=== PATIENT | male | born 1990 | race American Indian/Alaskan Native ===

== ENCOUNTER 2021-02-20 18:57 | Emergency (ER) | payer SELFPAY ==
--- NOTE | 2021-02-20 20:50 | XRay Report ---
CHEST 2 VIEWS INDICATION / CLINICAL INFORMATION: chest pain. COMPARISON: None available. FINDINGS: SUPPORT DEVICES: None. HEART / MEDIASTINUM: No significant abnormality. LUNGS / PLEURA: No significant pulmonary abnormality. No significant pleural effusion. No pneumothora x. ADDITIONAL FINDINGS: No significant additional findings. IMPRESSION: 1. No acute abnormality of the chest. Signer Name: Harvey Arboleda MD Signed: 02/20/2021 8:46 PM Workstation Name: [id number]
[2021-02-20] MEDS ORDERED: KETOROLAC 10 MG TAB PO ONE (23:24)
[2021-02-20] MEDS ORDERED: predniSONE 20 MG TAB PO ONE (23:25)
--- NOTE | 2021-02-20 23:25 | Emergency Department Report ---
ED Chest Pain HPI - General Chief Complaint: Chest Pain Stated Complaint: CHEST PAIN, BACK SOB Time Seen by Provider: 02/20/21 21:09 Source: patient Mode of arrival: Ambulatory Limitations: No Limitations - History of Present Illness Initial Comments: 30-year-old -[place] male patient presents with complaints of bilateral chest pain and tightness x3 weeks. He states the pain is constant and rates it as a 7/10 in severity. He denies any past medical history, recent long travel, cough, hemoptysis, fever/chills/sweats, recent known sick contacts, or loss of taste or smell. No shortness of breath per patient. He also denies any leg pain/swelling or history of DVT/PE. Patient is active smoker. He has not received the COVID-19 vaccination. He admits to frequent heavy lifting. Tylenol and ibuprofen temporarily help with the pain. He denies any personal history of heart disease, however admits to heart disease in his mother Severity scale (0 -10): 8 - Related Data Previous Rx's Medication Instructions Recorded Last Taken Type Naproxen 500 mg PO BID PRN #30 tablet 02/21/21 Unknown Rx methocarbamoL [Methocarbamol] 750 mg PO TID PRN #30 tablet 02/21/21 Unknown Rx Allergies Allergy/AdvReac Type Severity Reaction Status Date / Time No Known Allergies Allergy Verified 02/21/21 00:21 Heart Score - HEART Score History: Slightly suspicious EKG: Non-specific Age: < 45 Risk factors: 1-2 risk factors Troponin: < normal limit HEART Score: 2 - EKG Read Time Time EKG Completed: 16:00 EKG Read Time: 16:05 - Critical Actions Critical Actions: 0-3 pts:0.9-1.7%risk of adverse cardiac event.Candidate for discharge ED Review of Systems ROS: Stated complaint: CHEST PAIN, BACK SOB Other details as noted in HPI Constitutional: denies: chills, fever, malaise Respiratory: denies: cough, shortness of breath Cardiovascular: chest pain. denies: palpitations Gastrointestinal: denies: abdominal pain, nausea, vomiting Musculoskeletal: denies: joint swelling, arthralgia Skin: denies: rash, change in color ED Past Medical Hx - Past Medical History Previous Medical History?: No - Surgical History Past Surgical History?: No - Medications Home Medications: Home Medications Medication Instructions Recorded Confirmed Last Taken Type Naproxen 500 mg PO BID PRN #30 tablet 02/21/21 Unknown Rx methocarbamoL [Methocarbamol] 750 mg PO TID PRN #30 tablet 02/21/21 Unknown Rx ED Physical Exam - General Limitations: No Limitations General appearance: alert, in no apparent distress - Head Head exam: Present: atraumatic, normocephalic - Eye Eye exam: Present: normal appearance. Absent: scleral icterus - Neck Neck exam: Present: normal inspection - Respiratory Respiratory exam: Present: normal lung sounds bilaterally, chest wall tenderness (Tenderness to palpation noted bilaterally to the parasternal area of the chest wall without obvious deformity or skin changes noted). Absent: respiratory distress, wheezes, rales, rhonchi, stridor - Cardiovascular Cardiovascular Exam: Present: regular rate, normal rhythm, normal heart sounds. Absent: systolic murmur, diastolic murmur - GI/Abdominal GI/Abdominal exam: Present: soft. Absent: tenderness - Neurological Exam Neurological exam: Present: alert, oriented X3 - Psychiatric Psychiatric exam: Present: normal affect, normal mood - Skin Skin exam: Present: warm, dry, intact, normal color. Absent: rash ED Course Vital Signs 02/20/21 02/20/21 02/21/21 20:16 20:21 01:17 Temperature 98.5 F 98.0 F 97.9 F Pulse Rate 80 65 63 Respiratory 17 18 18 Rate Blood Pressure 120/78 125/72 Blood Pressure 131/72 [Right] O2 Sat by Pulse 96 99 98 Oximetry ED Medical Decision Making - Lab Data Result diagrams: 02/20/21 23:20 02/20/21 23:20 Lab Results 02/20/21 02/20/21 02/20/21 Range/Units 23:20 23:20 23:25 WBC 5.1 (4.5-11.0) K/mm3 RBC 4.65 (3.65-5.03) M/mm3 Hgb 14.6 (11.8-15.2) gm/dl Hct 43.2 (35.5-45.6) % MCV 93 (84-94) fl MCH 31 (28-32) pg MCHC 34 (32-34) % RDW 13.7 (13.2-15.2) % Plt Count 252 (140-440) K/mm3 Lymph % (Auto) 41.4 H (13.4-35.0) % [place] % (Auto) 14.4 H (0.0-7.3) % Eos % (Auto) 1.2 (0.0-4.3) % Baso % (Auto) 0.3 (0.0-1.8) % Lymph # (Auto) 2.1 (1.2-5.4) K/mm3 [place] # (Auto) 0.7 (0.0-0.8) K/mm3 Eos # (Auto) 0.1 (0.0-0.4) K/mm3 Baso # (Auto) 0.0 (0.0-0.1) K/mm3 Seg Neutrophils % 42.7 (40.0-70.0) % Seg Neutrophils # 2.2 (1.8-7.7) K/mm3 ESR (0-20) mm/Hr Sodium 136 L (137-145) mmol/L Potassium 4.2 (3.6-5.0) mmol/L Chloride 101.7 (98-107) mmol/L Carbon Dioxide 24 (22-30) mmol/L Anion Gap 15 mmol/L BUN 16 (9-20) mg/dL Creatinine 0.8 (0.8-1.3) mg/dL Estimated GFR > 60 ml/min BUN/Creatinine Ratio 20 % Glucose 84 (75-100) mg/dL Calcium 9.2 (8.4-10.2) mg/dL Total Bilirubin 0.20 (0.1-1.2) mg/dL AST 21 (5-40) units/L ALT 17 (7-56) units/L Alkaline Phosphatase 99 (35-129) units/L Troponin T < 0.010 (0.00-0.029) ng/mL C-Reactive Protein 0.20 (0.00-1.30) mg/dL Total Protein 6.8 (6.3-8.2) g/dL Albumin 3.9 (3.9-5) g/dL Albumin/Globulin Ratio 1.3 % 02/21/21 Range/Units Unknown WBC (4.5-11.0) K/mm3 RBC (3.65-5.03) M/mm3 Hgb (11.8-15.2) gm/dl Hct (35.5-45.6) % MCV (84-94) fl MCH (28-32) pg MCHC (32-34) % RDW (13.2-15.2) % Plt Count (140-440) K/mm3 Lymph % (Auto) (13.4-35.0) % [place] % (Auto) (0.0-7.3) % Eos % (Auto) (0.0-4.3) % Baso % (Auto) (0.0-1.8) % Lymph # (Auto) (1.2-5.4) K/mm3 [place] # (Auto) (0.0-0.8) K/mm3 Eos # (Auto) (0.0-0.4) K/mm3 Baso # (Auto) (0.0-0.1) K/mm3 Seg Neutrophils % (40.0-70.0) % Seg Neutrophils # (1.8-7.7) K/mm3 ESR 1 (0-20) mm/Hr Sodium (137-145) mmol/L Potassium (3.6-5.0) mmol/L Chloride (98-107) mmol/L Carbon Dioxide (22-30) mmol/L Anion Gap mmol/L BUN (9-20) mg/dL Creatinine (0.8-1.3) mg/dL Estimated GFR ml/min BUN/Creatinine Ratio % Glucose (75-100) mg/dL Calcium (8.4-10.2) mg/dL Total Bilirubin (0.1-1.2) mg/dL AST (5-40) units/L ALT (7-56) units/L Alkaline Phosphatase (35-129) units/L Troponin T (0.00-0.029) ng/mL C-Reactive Protein (0.00-1.30) mg/dL Total Protein (6.3-8.2) g/dL Albumin (3.9-5) g/dL Albumin/Globulin Ratio % - EKG Data EKG shows normal: sinus rhythm Rate: normal - EKG Data When compared to previous EKG there are: other (Elevated T waves and possible pericarditis) - Radiology Data Radiology results: report reviewed CHEST 2 VIEWS INDICATION / CLINICAL INFORMATION: chest pain. COMPARISON: None available. FINDINGS: SUPPORT DEVICES: None. HEART / MEDIASTINUM: No significant abnormality. LUNGS / PLEURA: No significant pulmonary abnormality. No significant pleural effusion. No pneumothorax. ADDITIONAL FINDINGS: No significant additional findings. IMPRESSION: 1. No acute abnormality of the chest. - Medical Decision Making 30-year-old -[place] male patient presents with complaints of bilateral chest pain and tightness x3 weeks. He states the pain is constant and rates it as a 7/10 in severity. He denies any past medical history, recent long travel, cough, hemoptysis, fever/chills/sweats, recent known sick contacts, or loss of taste or smell. No shortness of breath per patient. He also denies any leg pain/swelling or history of DVT/PE. Patient is active smoker. He has not received the COVID-19 vaccination. He admits to frequent heavy lifting. Tylenol and ibuprofen temporarily help with the pain. He denies any personal history of heart disease, however admits to heart disease in his mother Tenderness to palpation noted bilaterally to parasternal region of chest. PERC score = 0. Heart score = 2. Chest x-ray is normal. EKG shows possible diffuse elevated T waves and possible pericarditis. Heart exam is normal. Vitals are normal. CBC and troponin normal. CRP is normal. Do not suspect pericarditis. Symptoms likely due to costochondritis. Patient states pain improved with meds given here in ED. Recommend follow-up with PCP and cardiology. Discussed in detail signs and symptoms that should prompt immediate return to the ED with patient who verbalizes understanding. Critical care attestation.: If time is entered above; I have spent that time in minutes in the direct care of this critically ill patient, excluding procedure time. ED Disposition Clinical Impression: Other chest pain Disposition: 01 HOME / SELF CARE / HOMELESS Is pt being admited?: No Condition: Stable Instructions: Nonspecific Chest Pain, Adult, [id number], Costochondritis Prescriptions: methocarbamoL [Methocarbamol] 750 mg PO TID PRN #30 tablet PRN Reason: muscle spasm/tightness Naproxen 500 mg PO BID PRN #30 tablet PRN Reason: pain Referrals: MICHELLE COTO MD [Staff Physician] - 3-5 Days
[2021-02-21 00:15] LABS: Alanine Aminotransferase 17 units/L (7-56); Albumin 3.9 g/dL (3.9-5); BUN/Creatinine Ratio 20; Blood Urea Nitrogen 16 mg/dL (9-20); Calcium 9.2 mg/dL (8.4-10.2); Hemolysis Index 7
[2021-02-21 00:18] LABS: Basophils % (Auto) 0.3 % (0.0-1.8); Eosinophils # (Auto) 0.1 K/mm3 (0.0-0.4); Eosinophils % (Auto) 1.2 % (0.0-4.3); Hematocrit 43.2 % (35.5-45.6); Hemoglobin 14.6 gm/dl (11.8-15.2); Lymphocytes # (Auto) 2.1 K/mm3 (1.2-5.4); Lymphocytes % (Auto) 41.4 % (13.4-35.0); Mean Corpuscular HGB Conc 34 % (32-34); Mean Corpuscular Volume 93 fl (84-94); Monocytes # (Auto) 0.7 K/mm3 (0.0-0.8); Monocytes % (Auto) 14.4 % (0.0-7.3); Platelet Count 252 K/mm3 (140-440); Red Blood Count 4.65 M/mm3 (3.65-5.03); Red Cell Distribution Width 13.7 % (13.2-15.2)
[2021-02-21 01:18] VITALS: BP 125/72
--- NOTE | 2021-02-21 11:24 | Electrocardiograph Report ---
[facility] Test Date: 2021-02-20 Test Time: 19:21:04 Pat Name: RADU DAIGLE Department: Room: Gender: M Artisan Plasterer: : 1990 Requested By: MICHELLE BAGLEY Order Number: [id number] Reading MD: Dallas Clifton Measurements Intervals [place] Rate: 85 P: 64 CO: 156 QRS: 10 QRSD: 100 T: 45 QT: 356 QTc: 424 Interpretive Statements Sinus rhythm Nonspecific ST elevation No previous ECG available for comparison Electronically Signed On 02-21-2021 11:24:12 EST by Dallas Clifton
== END 2021-02-21 01:39 | disposition home or self-care (01) ==
LOC: ED 18:57
DX: R07.89 Other chest pain (principal)
CPT/HCPCS: 36415; 71046; 80053; 84484; 85025; 85652; 86140; 93005; 99283; J7512

== ENCOUNTER 2021-03-13 07:39 | Emergency (ER) | payer SELFPAY ==
[2021-03-13 07:46] VITALS: BP 122/77
[2021-03-13] MEDS ORDERED: KETOROLAC 30 MG/1 ML INJ IM ONE (08:40)
--- NOTE | 2021-03-13 08:45 | Emergency Department Report ---
ED General Adult HPI - General Chief complaint: Back Pain/Injury Stated complaint: LOW BACK PAIN Time Seen by Provider: 03/13/21 08:38 Source: patient Mode of arrival: Ambulatory Limitations: No Limitations - History of Present Illness Initial comments: The patient was evaluated in the emergency department for symptoms described in the history of present illness. He/she was evaluated in the context of the global COVID-19 pandemic, which necessitated consideration that the patient might be at risk for infection with the virus that causes COVID-19. Institutional protocols and algorithms that pertain to the evaluation of patients at risk for COVID-19 are in a state of rapid change based on information released by regulatory bodies including the CDC and federal and state organizations. These policies and algorithms were followed during the patient's care in the emergency department. Please note that these policies, procedures and recommendations changed on a rapid basis. 30-year-old -[place] male presents back to the emergency room still complaining of lower back pain and chest pain. Patient states that his back pain radiates to both legs and is looking the lower back. Patient states is been going on for couple of months. Also reports he still has chest wall tenderness for a month. He states he was diagnosed with costochondritis and was placed on Robaxin and naproxen. Patient did not follow-up with the referral that was recommended to him. 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 He does admit he has been seen several times for the same complaint. Patient denies any IV drug use no unintentional weight loss no trauma no longer use steroids no fevers or chills. Dates he no longer smokes cigarettes or marijuana still drinks. Onset/Timin -: month(s) Location: chest, back (lbp) Radiation: extremity, distal Severity scale (0 -10): 8 Quality: burning, aching, sharp Consistency: intermittent Worsens with: movement Associated Symptoms: denies other symptoms Treatments Prior to Arrival: none - Related Data Previous Rx's Medication Instructions Recorded Last Taken Type Naproxen 500 mg PO BID PRN #30 tablet 02/21/21 Unknown Rx methocarbamoL [Methocarbamol] 750 mg PO TID PRN #30 tablet 02/21/21 Unknown Rx predniSONE [Deltasone] 40 mg PO QDAY 5 Days #10 tab 03/13/21 Unknown Rx traMADoL [Ultram 50 MG tab] 50 mg PO Q6HR PRN #12 tablet 03/13/21 Unknown Rx Allergies Allergy/AdvReac Type Severity Reaction Status Date / Time No Known Allergies Allergy Verified 03/13/21 07:40 ED Review of Systems ROS: Stated complaint: LOW BACK PAIN Other details as noted in HPI ED Past Medical Hx - Past Medical History Previous Medical History?: No - Surgical History Past Surgical History?: No - Medications Home Medications: Home Medications Medication Instructions Recorded Confirmed Last Taken Type Naproxen 500 mg PO BID PRN #30 tablet 02/21/21 Unknown Rx methocarbamoL [Methocarbamol] 750 mg PO TID PRN #30 tablet 02/21/21 Unknown Rx predniSONE [Deltasone] 40 mg PO QDAY 5 Days #10 tab 03/13/21 Unknown Rx traMADoL [Ultram 50 MG tab] 50 mg PO Q6HR PRN #12 tablet 03/13/21 Unknown Rx ED Physical Exam - General Limitations: No Limitations General appearance: alert, in no apparent distress - Head Head exam: Present: atraumatic, normocephalic - Eye Eye exam: Present: normal appearance - ENT ENT exam: Present: mucous membranes moist - Neck Neck exam: Present: normal inspection - Respiratory Respiratory exam: Present: normal lung sounds bilaterally, chest wall tenderness. Absent: respiratory distress, accessory muscle use - Cardiovascular Cardiovascular Exam: Present: regular rate, normal rhythm. Absent: systolic murmur, diastolic murmur, rubs, gallop - GI/Abdominal GI/Abdominal exam: Present: soft, normal bowel sounds - Rectal Rectal exam: Present: deferred - Extremities Exam Extremities exam: Present: normal inspection - Back Exam Back exam: Present: normal inspection, full ROM - Expanded Back Exam Expanded Back exam: Sciatic Notch Tenderness: Left, Right, Positive Straight Leg Raise: Left, Right - Neurological Exam Neurological exam: Present: alert, oriented X3, normal gait - Psychiatric Psychiatric exam: Present: normal affect, normal mood - Skin Skin exam: Present: warm, dry, intact, normal color. Absent: rash ED Course Vital Signs 03/13/21 07:43 Temperature 99.6 F Pulse Rate 93 H Respiratory 18 Rate Blood Pressure 122/77 O2 Sat by Pulse 97 Oximetry ED Medical Decision Making - Medical Decision Making 30-year-old -[place] male presents back to the emergency room still complaining of lower back pain and chest pain. Patient states that his back pain radiates to both legs and is looking the lower back. Patient states is been going on for couple of months. Also reports he still has chest wall tenderness for a month. He states he was diagnosed with costochondritis and was placed on Robaxin and naproxen. Patient did not follow-up with the referral that was recommended to him. 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 He does admit he has been seen several times for the same complaint. Patient denies any IV drug use no unintentional weight loss no trauma no longer use steroids no fevers or chills. Dates he no longer smokes cigarettes or marijuana still drinks. The patient presents with acute back pain. The patient is now resting comfortably and feels better, is alert talkative interactive and in no distress. Repeat examination is unremarkable and benign. The patient is neurologically intact and is ambulatory in the ED. Patient has no fever, no bowel or bladder incontinence, no saddle anesthesia, and is otherwise alert and well-appearing. The history physical examination and diagnostic( if any) do not suggest the presence of acute spinal epidural abscess, acute spinal epidural bleed, cauda equina syndrome, abdominal aortic aneurysm, aortic dissection or other process requiring further testing, treatment or consultation in the emergency department. The vital signs have been stable. The patient's condition is stable and appropriate for discharge. The patient will pursue further outpatient evaluation with a primary care physician or other designated or consulting physician as indicated in the discharge instructions. Critical care attestation.: If time is entered above; I have spent that time in minutes in the direct care of this critically ill patient, excluding procedure time. ED Disposition Clinical Impression: Chronic back pain greater than 3 months duration, Costochondritis, acute Disposition: 01 HOME / SELF CARE / HOMELESS Is pt being admited?: No Does the pt Need Aspirin: No Condition: Stable Instructions: Chronic Back Pain, [id number], Costochondritis Additional Instructions: Please take pain medication as prescribed. Do not operate heavy machinery while taking tramadol. Increase your water intake. Do your stretches. Follow-up with an orthopedic provider. Prescriptions: predniSONE [Deltasone] 40 mg PO QDAY 5 Days #10 tab traMADoL [Ultram 50 MG tab] 50 mg PO Q6HR PRN #12 tablet PRN Reason: Pain Referrals: PRIMARY CARE, [Primary Care Provider] - 3-5 Days [facility] [Provider Group] - 3-5 Days Time of Disposition: 10:23
== END 2021-03-13 11:00 | disposition home or self-care (01) ==
LOC: ED 07:39
DX: M94.0 Chondrocostal junction syndrome [Tietze] (principal); G89.29 Other chronic pain; M54.9 Dorsalgia, unspecified
CPT/HCPCS: 96372; 99281; J1885